=== PATIENT | female | born 1940 | race Caucasian/White ===

== ENCOUNTER 2019-03-14 09:44 | Inpatient (IN) | payer OTHER ==
[~2019-03-14] VITALS: Ht 167.6 cm; Wt 73.0 kg
[2019-03-14 09:47] VITALS: BP 165/97
[2019-03-14] MEDS ORDERED: LOTRISONE CREAM15 GM TOP (10:01)
[2019-03-14] MEDS ORDERED: ADVAIR 250-501 EACH INH (10:01)
[2019-03-14] MEDS ORDERED: FERROUS GLUCON324 M2 PO (10:02)
[2019-03-14] MEDS ORDERED: GYNE-LOTRIMIN-745 GM VAG (10:02)
[2019-03-14] MEDS ORDERED: VENTOLIN HFA 1818 GM INH (10:02)
[2019-03-14] MEDS ORDERED: SYNTHROID25 MC1 PO (10:03)
[2019-03-14] MEDS ORDERED: LASIX 40 MG TAB40 M2 PO (10:03)
[2019-03-14] MEDS ORDERED: LIDODERM1 EACH TRANSDERM (10:03)
[2019-03-14] MEDS ORDERED: LEVAQUIN 500 M500 M2 PO (10:03)
[2019-03-14] MEDS ORDERED: NORCO 10-325 T1 EACH PO (10:04)
[2019-03-14] MEDS ORDERED: LOSARTAN POTASS50 MG PO (10:04)
[2019-03-14] MEDS ORDERED: LOPRESSOR50 PO (10:04)
[2019-03-14] MEDS ORDERED: ONDANSETRON HCL4 M2 PO (10:05)
[2019-03-14] MEDS ORDERED: XARELTO20 MG PO (10:05)
[2019-03-14] MEDS ORDERED: PROMETHAZINE-C473 ML PO (10:05)
[2019-03-14 10:25] LABS: ABSOLUTE EOSINOPHILS 0.3 thou/uL (0.0-0.7); ABSOLUTE LYMPHOCYTES 1.9 thou/uL (0.8-5.3); ABSOLUTE MONOCYTES 0.7 thou/uL (0.0-1.2); ABSOLUTE NEUTROPHILS 3.8 thou/uL (1.6-8.1); BASOPHILS 0.6 %; EOSINOPHILS 4.1 %; HEMATOCRIT 46.4 % (37.0-47.0); HEMOGLOBIN 15.2 gm/dL (12.0-15.0); LYMPHOCYTES 28.9 %; MCH 32.8 pg (26.0-34.0); MCHC 32.8 g/dL (28.0-37.0); MPV 9.1 fl. (7.2-11.1); NUCLEATED RBCS 0 /100WBC; PLATELET COUNT* 180 thou/uL (150-400); POLYS 56.4 %; RBC 4.63 mil/uL (4.20-5.00); RDW-CV 16.5 % (10.5-14.5); WBC 6.7 thou/uL (4.0-11.0)
[2019-03-14 10:30] LABS: ANION GAP 9 mmol/L (7-16); BUN 14 mg/dL (7-18); CALCIUM 9.5 mg/dL (8.5-10.1); CHLORIDE 102 mmol/L (98-107); CO2 30 mmol/L (21-32); CREATININE 0.8 mg/dL (0.6-1.3); GLUCOSE 114 mg/dL (70-99); POTASSIUM 4.4 mmol/L (3.5-5.1); SODIUM 141 mmol/L (136-145)
[2019-03-14 10:33] LABS: INR 1.1; PROTIME 11.7 Seconds (9.20-11.50)
[2019-03-14 10:36] LABS: URINE BILIRUBIN NEGATIVE (Negative); URINE BLOOD TRACE (Negative); URINE CLARITY CLEAR; URINE COLOR YELLOW; URINE GLUCOSE-RANDOM NEGATIVE (Negative); URINE KETONES NEGATIVE (Negative); URINE LEUKOCYTES-REFLEX 1+ (Negative); URINE NITRITE-REFLEX NEGATIVE (Negative); URINE PROTEIN NEGATIVE (Negative); URINE SPECIFIC GRAVITY <= 1.005 (1.005-1.030); URINE UROBILINOGEN 0.2 E.U./dl (0.2-1.0)
[2019-03-14 10:42] LABS: ALBUMIN 3.5 g/dL (3.4-5.0); ALKALINE PHOSPHATASE 50 U/L (46-116); NT-PRO BRAIN NAT PEPTIDE 4195 pg/mL (<300); SGOT 17 U/L (15-37); SGPT 25 U/L (30-65); TOTAL BILIRUBIN 0.7 mg/dL (<0.1-1.0); TOTAL PROTEIN 6.7 g/dL (6.4-8.2); TROPONIN-I LEVEL <0.06 ng/mL (<0.06)
[2019-03-14 10:44] LABS: BACTERIA-REFLEX 1-9 Few /HPF (None Seen); CASTS None Seen /LPF (None Seen); CRYSTALS None Seen /LPF (None Seen); MUCUS None Seen strn/LPF (None Seen); SQUAMOUS 0-3 Few /LPF (0-3); URINE RBC 3-10 Few /HPF (0-2); URINE WBC-REFLEX 0-5 Rare /HPF (0-5)
[2019-03-14 11:14] LABS: BE 2.2 mmol/L (-2 to +3); PCO2 44.4 mmHg (35.0-45.0); PO2 76.7 mmHg (75.0-100.0); pH 7.408 (7.340-7.450)
--- NOTE | 2019-03-14 14:13 | EKG ---
[place] [address] ELECTROCARDIOGRAM REPORT Name: JULIANO HARDEN Room: [place] [address] ADM IN [facility]#: [id number] Admission: 03/14/19 Attend Phys: Lamont Camara MD Discharge: Date of : 36 Report #: [id number] THIS REPORT FOR: //name// [facility] ED Test Date: 2019-03-14 Test Time: 09:52:37 Pat Name: JULIANO CORRALESNON Department: Room: [facility] Gender: F Building Certifier: : 1940 Requested By: Zoila Cyr Order Number: [id number] MD: Isac Moran Measurements Intervals [place] Rate: 118 P: ND: QRS: 27 QRSD: 101 T: QT: 447 QTc: 627 Interpretive Statements Atrial fibrillation Ventricular premature complex Low voltage, precordial leads RSR' in V1 or V2, right VCD or RVH Consider anterior infarct Borderline T abnormalities, inferior leads Prolonged QT interval No previous ECG available for comparison artifact noted Electronically Signed On 03-14-2019 14:13:27 CDT by Isac Moran [email or web address] <ELECTRONICALLY SIGNED> By: Isac Moran MD, [facility] 03/14/19 [id number] Isac Moran MD, [facility] /EPI
--- NOTE | 2019-03-14 14:47 | NUR ---
REPORTED BP 81/44 & HR 101 AFTER METOPROLOL PO GIVEN AT [address] HODGES. ALSO REPORTED THAT HR WAS UP TO 140'S PRIOR TO METOPROLOL PO BEING GIVEN. ORDER RECEIVED TO DROP METOPROLOL TO 25 MG PO BID.
[2019-03-14 17:45] VITALS: BP 120/54
[2019-03-14 18:00] VITALS: BP 112/67
--- NOTE | 2019-03-14 19:19 | NUR ---
PT FROM ER, GET SITUATED TO ROOM. AOX4, SBA, O2 SAT AT 90'S 2L NC.TELE IN PLACED TRACING AFIB, PVC, TACH. LIMB ALERT ON R ARM. HEART HEALTHY DIET. IV ACCESS INTACT. VSS. GIVE REPORT TO NIGHT NURSE. CALL LIGHT WITHIN REACH WILL CONTINUE TO MONITOR.
[2019-03-14 20:00] VITALS: BP 106/55; BP 110/58
[2019-03-15] VITALS (12 sets, daily range): BP systolic 88–152; BP diastolic 33–96
[2019-03-15 05:08] LABS: HEMATOCRIT 43.1 % (37.0-47.0); HEMOGLOBIN 14.5 gm/dL (12.0-15.0); MCH 33.5 pg (26.0-34.0); MCHC 33.6 g/dL (28.0-37.0); MCV 99.6 fL (80.0-100.0); MPV 9.4 fl. (7.2-11.1); RBC 4.32 mil/uL (4.20-5.00); RDW-CV 16.7 % (10.5-14.5); WBC 9.4 thou/uL (4.0-11.0)
[2019-03-15 05:35] LABS: CALCIUM 9.6 mg/dL (8.5-10.1); CREATININE 1.1 mg/dL (0.6-1.3); MAGNESIUM 1.6 mg/dL (1.8-2.4); POTASSIUM 3.9 mmol/L (3.5-5.1)
--- NOTE | 2019-03-15 06:52 | NUR ---
ASSUMED PT CARE AT APPROX 1900. PT IS AWAKE AND ORIENTED X4. RECREATION CLERK IN PLACE TRACING AFIB AT 110s TO 150'S. PT DENIES SHORTNESS OF AIR/CHEST PAIN. BP HAS BEEN SOFT, PLS SEE CHARTING. DR ORO INFORMED, CARDIZEM ORDERED AND ADMINISTERED WITH CAUTION. PT DID NOT TOLERATE CARDIZEM DRIP BP BENITEZ (BP DROPPED TO 88/33 FROM 97/51 AFTER 5MINS), DR GRAHAM;HITESH INFORMED. EKG DONE AND CARDIOLOGY CONSULTED ORDERED. WILL CLOSELY MONITOR PT.
--- NOTE | 2019-03-15 15:09 | NUR ---
PATIENT RESTING IN BED. UP AD LISET IN ROOM WITH STEADY GAIT. 2L PER NASAL CANULA. PATIENT IS AFIB WITH RATES OF 90-120 WITH CARDILOGY CONSLUTATION NOTED. BLOOD PRESSURES ARE SOFT AT TIMES, 500 ML BOLUS COMPLETED, LACTIC ACID WAS 3.1, MD NOTIFIED. HOURLYK ROUNDING COMPLETD FOR PATIENT SAFETY
[2019-03-16 03:41] VITALS: BP 109/54
--- NOTE | 2019-03-16 06:30 | NUR ---
ASSUMED CARE OF PATIENT AT APPROX 1930. PATIENT PROGRESSING TOWARDS GOALS: ABLE TO BE WEANED OFF OXYGEN AND MAINTAINING O2 SATS AT 93-94% ON ROOM AIR. PATIENT RECEIVED HYDROCODONE FOR PAIN AND EFFECTIVELY RELIEVED. PATIENT EAGER TO BE DISCHARGED. HEART RATE SOMEWHAT MORE CONTROLLED WITH MEDICATION.
[2019-03-16 08:00] VITALS: BP 105/76
[2019-03-16 12:00] VITALS: BP 149/62
[2019-03-16 16:00] VITALS: BP 113/66
--- NOTE | 2019-03-16 16:22 | NUR ---
PATINET RESTING IN BED UP AD LISET IN ROOM. PATIENT ON ROOM AIR. PATIENT IN NO APPARENT DISTRESS. SHE DOES HAVE CHRONIC BACK PAIN WELL CONTROLLED WITH HOME DOSE PO MEDICATIONS. HOURLY ROUNDING COMPLETD FOR PATINET SAFETY.
[2019-03-16 20:00] VITALS: BP 136/56
[2019-03-17] VITALS: BP 124/77
--- NOTE | 2019-03-17 03:40 | NUR ---
ASSUMED PT CARE AT APPROX 1930. PT IS AWAKE AND ORIENTED X4. VSS. CALENDER SUPERVISOR IN PLACE TRACING AFIB-MORE RATE CONTROLLED. ASSESSMENT DONE CHARTED. PT DENIES PAIN/DISCOMFORT. DECREASED O2 SAT NOTED AT AROUND MIDNIGHT, PLACED O2 INHALATION PER NC AT 1L PER RT. O2 SAT: 92-94% ON 1L. PT IS ABLE TO SLEEP MOST OF THE NIGHT. CALL LIGHT WITHIN REACH. HOURLY ROUNDING DONE FOR PT SAFETY.
[2019-03-17 04:00] VITALS: BP 129/64
[2019-03-17 08:00] VITALS: BP 121/75
[2019-03-17] MEDS ORDERED: CEFDINIR300 MG PO (09:04)
[2019-03-17] MEDS ORDERED: AZITHROMYCIN 2250 MG PO (09:04)
[2019-03-17] MEDS ORDERED: PREDNISONE 20 M20 MG PO (09:04)
[2019-03-17] MEDS ORDERED: MUCINEX600 MG PO (09:04)
[2019-03-17] MEDS ORDERED: LEVALBUTER1.25 MG/0. INH (09:04)
[2019-03-17 10:30] VITALS: BP 121/75
--- NOTE | 2019-03-17 11:30 | NUR ---
MET WITH PT TO DISCUSS HOME SITUATION/DC PLANNING. PT LIVES WITH SPOUSE IN [place], IS HERE VISITING HER DTR FOR ANOTHER WEEK. PT IS INDEPENDENT AND ACTIVE. USES NEBULIZER AND SHOWER BENCH. HAS PCP SHE FOLLOWS WITH. PT DENIES ANY DC NEEDS. PLANS TO DC LATER TODAY
[2019-03-17 12:00] VITALS: BP 119/63
--- NOTE | 2019-03-17 14:31 | EKG ---
[place] [address] ELECTROCARDIOGRAM REPORT Name: JULIANO HARDEN Room: [address] IN [facility]#: [id number] Admission: 03/14/19 Attend Phys: Lamont Camara MD Discharge: 03/17/19 Date of : 36 Report #: [id number] THIS REPORT FOR: //name// [facility] Test Date: 2019-03-15 Test Time: 06:31:31 Pat Name: JULIANO HARDEN Department: Room: [address] Gender: F Shark Biologist: [id number] : 1940 Requested By: Isael Corrales Order Number: [id number] Reading MD: Reji Khoury Measurements Intervals [place] Rate: 132 P: GA: QRS: 22 QRSD: 122 T: 208 QT: 311 QTc: 461 Interpretive Statements Atrial fibrillation Right bundle branch block Nonspecific T abnormalities, lateral leads Compared to ECG 03/14/2019 09:52:37 Right bundle-branch block now present Ventricular premature complex(es) no longer present Right ventricular hypertrophy no longer present Myocardial infarct finding no longer present Prolonged QT interval no longer present T-wave abnormality still present Electronically Signed On 03-17-2019 14:31:26 CDT by Reji Khoury [email or web address] <ELECTRONICALLY SIGNED> By: Reji Khoury MD, [facility] 03/17/19 1431 Reji Khoury MD, [facility] /EPI
--- NOTE | 2019-03-17 15:02 | CON ---
[address] [address] CONSULTATION Name: JULIANO HARDEN Room: [address] IN ..#: [id number] Admission: 03/14/19 Attend Phys: Lamont Camara MD Discharge: 03/17/19 Date of : 36 Report #: [id number] THIS REPORT FOR: //name// CC: Lamont Camara Physician staff [facility] DATE OF SERVICE: 03/15/2019 INPATIENT CONSULTATION CHIEF COMPLAINT: Shortness of breath. HISTORY OF PRESENT ILLNESS: The patient is an 79-year-old female who was visiting from out of town. She lives alternately between [place] and [place]. She was visiting family here. She became acutely short of breath and was diagnosed with pneumonia. We are asked to see her because of atrial fibrillation. This is apparently a chronic issue and she is in a persistent rate control treatment strategy from her molder trimmer in [place]. Unfortunately, we do not have records. With her atrial fibrillation, she denies symptoms of heart racing or skipping, chest pain, pressure, but has chronic shortness of breath. She is anticoagulated with Xarelto and had done relatively well. She denies GI or bleeding or falls. PAST MEDICAL HISTORY: Significant for the following: COPD, atrial fibrillation, hypertension, congestive heart failure. Apparently, she had a stress test and echo just within the last year, which were reportedly normal. Details of this are not available. HOME MEDICATIONS: Include fluticasone, albuterol, iron, Lasix 40 mg p.o. b.i.d., Synthroid, losartan 50 mg p.o. b.i.d., metoprolol 50 mg p.o. b.i.d., Xarelto 20 mg daily, Zofran. PAST SURGICAL HISTORY: Spinal stenosis, foot surgery. No history of cardiac revascularization. REVIEW OF SYSTEMS: GENERAL: No fevers or chills. PULMONARY: No wheezing or cough. Positive shortness of breath. GASTROINTESTINAL: No hematemesis or melena. No vomiting, vomiting blood or ulcers. GENITOURINARY: No dysuria or hematuria. CARDIOVASCULAR: Positive palpitations, positive shortness of breath, [place] [address] CONSULTATION Name: JULIANO HARDEN [place] Room: [address]#: [id number] Admission: 03/14/19 Attend Phys: Lamont Camara MD Discharge: 03/17/19 Date of : 36 Report #: [id number] dyspnea on exertion. No edema, no weight gain. ENDOCRINE: No diabetes. Positive thyroid disease. HEMATOLOGIC: No anemia or bleeding disorders. ALLERGIES: No seasonal allergies. POSITIVE ALLERGIES TO JS INHIBITORS. PSYCHIATRIC: No depression or anxiety. SKIN: No rashes. EYES: Positive for glasses. EARS, NOSE, THROAT AND MOUTH: No decreased hearing. PHYSICAL EXAMINATION: VITAL SIGNS: Blood pressure is 94/49, pulse is 115, temperature is 37.0. GENERAL: This is a thin elderly woman. She is a poor historian, but she is in no apparent distress. NEUROLOGIC: There are no focal deficits. There is no facial droop. HEENT: Eyes are intact. No facial asymmetry. NECK: Supple. No jugular venous distention. THROAT: She has normal speech. CARDIOVASCULAR: Irregular, tachycardic. I cannot hear murmur. LUNGS: Diminished breath sounds bilaterally. There are no rales. ABDOMEN: Soft, nontender. EXTREMITIES: There is no peripheral edema. LABORATORY DATA: EKG demonstrates atrial fibrillation with relatively elevated ventricular response to 130s. There is a right bundle branch block, incomplete. There are nonspecific ST-segment changes. Hemoglobin is 14, white blood count is 9, platelet count is 184,000. Troponin I is 0.06 x 3 sets. ProBNP is 4,195. Chest x-ray reveals cardiomegaly, but no infiltrates and flattened diaphragm consistent with lung disease. IMPRESSION: 1. Respiratory insufficiency. I suspect this is more of a chronic obstructive pulmonary disease exacerbation with acute bronchitis given her history. I would treat her with aggressive medical therapy for this and her elevated heart rates are most likely secondary to respiratory insufficiency. She does have an elevated BNP, but historically she reports her tests have always been normal from a cardiac standpoint. We will try to obtain records. 2. Atrial fibrillation. She has a rapid ventricular response secondary to respiratory insufficiency. I will continue with her beta blockers. Consider switching to Cardizem if this is concerning to increase her bronchospasm. 3. Hypertension. Her blood pressure currently is low due to illness. 4. Oral anticoagulation. I continue with Xarelto. She has done well with this therapy. <ELECTRONICALLY SIGNED> By: Harmeet Kirby MD, FACC 03/17/19 1502 [id number] Kirby MD, FACC /nt
--- NOTE | 2019-03-17 15:19 | NUR ---
ORDER RECIEVED TO DISHCARGE PATIENT HOME TO SELF CARE. MED REC, MEDICATION EDUCATION, STROKE EDUCATION, AND NEED FOR FOLLOW UP CARE WITH PRIMARY PROVIDER AND CARDIOLOGY COVERED WITH PATIENT AND STATED UNDERSTOOD. IV AND TELEMETRY PACK REMOVED. PATINET WAS PROVIDED ADEQUATE TIME FOR ALL QUESTIONS TO BE ADRESSED. HOURLY ROUNDING COMPLETED FOR PATINET SAFETY. BRISA WAS TRANSPORTED VIA WHEELCHAIR TO AWAITING CAR WITH DAUGHTER AND PRESENT. PATIENT WAS TAKEN TO MEDICAL RECORDS TO REQUEST MEDICAL RECORDS FOR HER PRIMARY CARE PROVIDERS Roas LOCKE AND [facility]. DISCHARGE TIME OF 14:10.
== END 2019-03-17 14:10 | disposition home or self-care (01) | DRG 871 ==
LOC: M.ERS 09:44 → M.2W 11:00 → M.TBA-ER 11:00 → M.2W 18:19
PROVIDERS: Personal Emergency Response Attendant; ADMIT Internal Medicine
DX: A41.9 Sepsis, unspecified organism (principal); J96.91 Respiratory failure, unspecified with hypoxia; J15.9 Unspecified bacterial pneumonia; N39.0 Urinary tract infection, site not specified; I50.22 Chronic systolic (congestive) heart failure; J44.1 Chronic obstructive pulmonary disease with (acute) exacerbation; J44.0 Chronic obstructive pulmonary disease with (acute) lower respiratory infection; I95.2 Hypotension due to drugs; I11.0 Hypertensive heart disease with heart failure; E03.9 Hypothyroidism, unspecified; G89.29 Other chronic pain; I48.2 Chronic atrial fibrillation; Z85.3 Personal history of malignant neoplasm of breast; Z79.51 Long term (current) use of inhaled steroids; Z79.01 Long term (current) use of anticoagulants; Z79.899 Other long term (current) drug therapy